=== PATIENT | male | born 1995 | race Caucasian/White ===

== ENCOUNTER 2025-07-20 19:47 | Emergency (ER) | payer SELFPAY ==
[~2025-07-20] VITALS: Ht 172.7 cm; Wt 75.0 kg
[2025-07-20 19:49] VITALS: O2SAT 97
[2025-07-20] MEDS: IBUPROFEN 400MG TABLET PO ONE (21:52)
[2025-07-20] MEDS: ONDANSETRON 4MG ODT PO ONE (21:52)
[2025-07-20] MEDS: HYDROCODONE/ACETAMINOPHEN 5/325MG TABLET PO ONE (21:52)
[2025-07-20] MEDS ORDERED: LIDO-53 TP (23:05)
[2025-07-20] MEDS ORDERED: METH-653 MT (23:05)
[2025-07-20] MEDS ORDERED: TOPUD PO (23:05)
[2025-07-20] MEDS ORDERED: IBUP-2028 MT (23:05)
[2025-07-20 23:16] VITALS: BP 116/69; PULSE 62; RESP 18; TEMP 36.8; O2SAT 98
== END 2025-07-20 23:17 | disposition home or self-care (01) ==
LOC: ER 19:47
DX: T14.8XXA Other injury of unspecified body region, initial encounter (principal); X58.XXXA Exposure to other specified factors, initial encounter; Y93.89 Activity, other specified; Y92.89 Other specified places as the place of occurrence of the external cause; Y99.8 Other external cause status
CPT/HCPCS: 99284; 71101; 73030; 73562; Q0162